=== PATIENT | male | born 1975 | race African-American/Black ===

== ENCOUNTER 2017-03-08 17:03 | Emergency (ER) | payer BC ==
[2017-03-08 17:09] VITALS: BP 150/107
--- NOTE | 2017-03-08 18:07 | ER Document Report ---
HPI - HPI Pain Level: 2 Notes: Patient is a 41-year-old diabetic male who presents the ED complaining of pain and possible infection between the fourth and fifth digits of his left foot 2 days. Patient states that he has a lot of pain to that area that does not radiate. Patient denies any injury. Patient states that his sugars have been well controlled and that he does not have any numbness or tingling in his lower extremities. He has not noticed any drainage from the site. No other concerns or complaints. Denies any other significant past medical history or drug allergies. Denies any IV drug use. Denies any headache, fever, URI, sore throat, chest pain, palpitations, syncope, cough, shortness of breath, wheeze, dyspnea, abdominal pain, nausea/vomiting/diarrhea, urinary retention, dysuria, hematuria, loss of control of bowel or bladder, numbness/tingling, muscle paralysis/weakness. No h/o MRSA. - ROS Notes: REVIEW OF SYSTEMS: CONSTITUTIONAL : Denies fever, chills, or sweats. Denies recent illness. EENT: Denies eye, ear, throat, or mouth pain or symptoms. Denies nasal or sinus congestion or discharge. Denies throat, tongue, or mouth swelling or difficulty swallowing. CARDIOVASCULAR: Denies chest pain. Denies palpitations or racing or irregular heart beat. Denies ankle edema. RESPIRATORY: Denies cough, cold, or chest congestion. Denies shortness of breath, difficulty breathing, or wheezing. GASTROINTESTINAL: Denies abdominal pain or distention. Denies nausea, vomiting , or diarrhea. Denies blood in vomitus, stools, or per rectum. Denies black, tarry stools. Denies constipation. GENITOURINARY: Denies difficulty urinating, painful urination, burning, frequency, blood in urine, or discharge. MUSCULOSKELETAL: Denies back or neck pain or stiffness. Denies joint pain or swelling. SKIN: see hpi NEUROLOGICAL: Denies confusion or altered mental status. Denies passing out or loss of consciousness. Denies dizziness or lightheadedness. Denies headache. Denies weakness or paralysis or loss of use of either side. Denies problems with gait or speech. Denies sensory loss, numbness, or tingling. ALL OTHER SYSTEMS REVIEWED AND NEGATIVE. Dictation was performed using [employer] recognition software - DERM Skin Color: Normal Past Medical History - Social History Smoking Status: Unknown if Ever Smoked Family History: Reviewed & Not Pertinent - Past Medical History Cardiac Medical History: Reports: Hx Hypertension Neurological Medical History: Reports: Hx Migraine Endocrine Medical History: Reports: Hx Diabetes Mellitus Type 2 Renal/ Medical History: Denies: Hx Peritoneal Dialysis Musculoskeltal Medical History: Reports Hx Musculoskeletal Trauma Skin Medical History: Reports Hx Cellulitis, Reports Hx Eczema Traumatic Medical History: Reports: Hx Fractures Past Surgical History: Reports: Hx Orthopedic Surgery - Left Arm - Immunizations Immunizations up to date: Yes Hx Diphtheria, Pertussis, Tetanus Vaccination: Yes Vertical Provider Document - CONSTITUTIONAL Agree With Documented VS: Yes Notes: PHYSICAL EXAMINATION: GENERAL: Well-appearing, well-nourished and in no acute distress. LUNGS: Breath sounds clear to auscultation bilaterally and equal. No wheezes rales or rhonchi. HEART: Regular rate and rhythm without murmurs, rubs, gallops. ABDOMEN: Soft, nontender, nondistended abdomen. No guarding, no rebound. No masses appreciated. Normal bowel sounds present. No CVA tenderness bilaterally. Musculoskeletal: Left foot: FROM to passive/active. Strength 5+/5. No bony tenderness. N/V intact distal. Extremities: No cyanosis, clubbing, or edema b/l. Peripheral pulses 2+. Capillary refill less than 3 seconds. NEUROLOGICAL: Normal speech, normal gait. Normal sensory, motor exams PSYCH: Normal mood, normal affect. SKIN: small 0.25cm abscess and blood blister noted b/w the 4th-5th digit of left foot. - INFECTION CONTROL TRAVEL OUTSIDE OF THE [place] IN LAST 30 DAYS: No - RESPIRATORY O2 Sat by Pulse Oximetry: 98 Course - Re-evaluation Re-evalutation: 03/08/17 18:06 Patient is an afebrile, well-hydrated, 41-year-old diabetic male who presents the ED with a small abscess to the left toes. Vitals are stable. PE is otherwise unremarkable. Wound culture was obtained. I will send him home with a prescription for Bactrim and Keflex to take as directed. Bacitracin placed prior to discharge. Wound instructions reviewed. Recheck with your PCM this week. Return to the ED with any worsening/concerning symptoms otherwise as reviewed in discharge. Patient is in agreement. - Vital Signs Vital signs: Temp Pulse Resp BP Pulse Ox 98.4 F 78 18 150/107 H 98 03/08/17 17:07 03/08/17 17:07 03/08/17 17:07 03/08/17 17:07 03/08/17 17:07 Procedures - Incision and Drainage Left Toe 5th digit Time completed: 18:00 Type: Simple Anesthetic type: Other - none Blade size: Other - 25g needle I&D procedure: Chlorprep applied, Shurclens applied, Sterile dressing applied Incision Method: Incision made with needle Amount/type of drainage: mild purulent;bloody Notes: 03/08/17 18:05 Consent obtained Risks/benefits understood Wound culture obtained. Pt tolerated procedure well w/o complication Discharge - Discharge Clinical Impression: Toe infection Condition: Stable Disposition: HOME, SELF-CARE Instructions: Soap Cleansing ([facility]), Antibiotic Ointment Protection ([facility]), Epsom Salt Soaks ([facility]) Additional Instructions: No submersion of the wound under water. Change the dressing daily and use a small amount of triple antibiotic ointment over wound. Recheck with PCM this week. Monitor for any signs of worsening pain or redness, streaks, and/or fever. Return to the ED if noticing any of the above symptoms or as needed. Take medications as directed. Return to the ED with any worsening symptoms and/or development of fever, headache, chest pain, palpitations, syncope, shortness of breath, trouble breathing, abdominal pain, n/v/d, blood in stool/urine, loss of control of bowel /bladder, urinary retention, muscle weakness/paralysis, saddle anesthesia, numbness/tingling, or other worsening symptoms that are concerning to you. Prescriptions: Cephalexin Monohydrate [Keflex 500 mg Capsule] 500 mg PO BID #20 capsule Sulfamethoxazole/Trimethoprim [Bactrim Ds Tablet] 1 each PO BID #20 tablet Forms: Elevated Blood Pressure Referrals: [facility] [Provider Group] - Follow up as needed
[2017-03-08] MEDS ORDERED: IBUPROFEN 600 MG TABLET PO ONE (18:28)
[2017-03-08] MEDS ORDERED: CEPHALEXIN 500 MG CAPSULE PO ONE (18:41)
[2017-03-08] MEDS ORDERED: SULFAMETHOXAZOLE/TRIMETHOPRIM 800-160 MG TABLET PO ONE (18:43)
== END 2017-03-08 18:59 | disposition home or self-care (01) ==
LOC: ER 17:03
PROC: 0H9NXZZ Drainage of Left Foot Skin, External Approach (ICD-10-PCS; principal; 2017-03-08)
DX: L08.9 Local infection of the skin and subcutaneous tissue, unspecified (principal); M79.672 Pain in left foot; E11.9 Type 2 diabetes mellitus without complications; R20.0 Anesthesia of skin
CPT/HCPCS: 87070; 87075; 87077; 87186; 87205; 99283